=== PATIENT | male | born 1990 | race Caucasian/White ===

== ENCOUNTER 2016-11-22 12:54 | Emergency (ER) | payer SELFPAY ==
[~2016-11-22] VITALS: Ht 188 cm; Wt 99.8 kg
[2016-11-22 13:10] VITALS: BP 114/79
--- NOTE | 2016-11-22 13:14 | Emergency Room Report ---
History of Present Illness General Chief Complaint: Pain Source: Patient, EMS Present Illness HPI The patient is a 26 yo M presenting with bilateral lower leg pain and numbness which began today. The patient states that these sensations occurred after walking more than usual. The patient states that symptoms are relieved with rest. Pain is described as a 5/10 dull ache primarily to both feet. The patient denies any other symptoms including back pain, incontinence, shortness of breath, chest pain, fever, chills, leg swelling, dizziness Allergies: Coded Allergies: No Known Allergies (Unverified , 11/22/16) Patient History Past Medical History: see triage record Pertinent Family History: none Reviewed Nursing Documentation: PMH: Agreed, PSxH: Agreed Nursing Documentation-PMH Past Medical History: No History, Except For Hx Asthma: Yes Review of Systems All Other Systems: negative except mentioned in HPI Physical Exam Vital Signs Date Time Temp Pulse Resp B/P Pulse Ox O2 Delivery O2 Flow Rate FiO2 11/22/16 12:45 98.4 77 16 114/79 99 Room Air Sp02 EP Interpretation: reviewed, normal General Appearance: no apparent distress, alert, GCS 15, non-toxic Head: normocephalic, atraumatic Eyes: bilateral eye PERRL, bilateral eye normal inspection Respiratory: chest non-tender, lungs clear, normal breath sounds, speaking full sentences Cardiovascular #1: regular rate, rhythm, no edema Gastrointestinal: normal bowel sounds, non tender, soft, non-distended, no guarding, no rebound Musculoskeletal: back normal, digits/nails normal, gait/station normal, normal range of motion, no calf tenderness, tender - TTP over plantar surfaces of bilat feet Neurologic: alert, oriented x3, responsive, motor strength/tone normal, sensory intact, normal gait, speech normal Psychiatric: judgement/insight normal, memory normal, mood/affect normal, no suicidal/homicidal ideation Reflexes: 2+ knee (R), 2+ knee (L), 2+ ankle (R), 2+ ankle (L) Skin: normal color, no rash, warm/dry, well hydrated Lymphatic: no adenopathy Medical Decision Making PA Attestation Dr. Crawford is my supervising physician. Patient management was discussed with my supervising physician Diagnostic Impression: Primary Impression: Right foot strain Additional Impression: Strain of left foot ER Course The patient is a 26 yo M presenting with bilateral lower leg pain and numbness which began today. Ddx considered include but not limited to sprain/strain, Cauda equina syndrome, fracture, contusion PE: vitals WNL. NAD. Head NC/AT. Skin warm and dry. SILT to bilat lower legs. No midline back tenderness. No obvious deformity. full AROM. Feet: TTP over bilat plantar surfaces. No edema. No deformity. The patient is given tylenol and is allowed to rest in the ED. Patient is feeling better. Patient states numbness has resided and pain has decreased. Normal gait at time of DC. Given prescription for motrin Last Vital Signs Date Time Temp Pulse Resp B/P Pulse Ox O2 Delivery O2 Flow Rate FiO2 11/22/16 13:10 98.4 67 16 114/79 99 Room Air Status: improved Disposition: HOME, SELF-CARE Condition: Improved Scripts Ibuprofen* (MOTRIN*) 600 Mg Tablet 600 MG ORAL Q8H Y for For Pain, #30 TAB 0 Refills Prov: DOREEN GUERIN 11/22/16 Referrals: NOT CHOSEN IPA/,REFERRING (PCP) DOREEN GUERIN Nov 22, 2016 13:14
[2016-11-22] MEDS ORDERED: IBUPROFEN600 MG ORAL (14:19)
[2016-11-22 14:57] VITALS: BP 120/69
[2016-11-22 14:59] VITALS: BP 120/69
== END 2016-11-22 14:59 | disposition home or self-care (01) ==
LOC: EDBD 12:54 → EMR 13:07
DX: S96.911A Strain of unspecified muscle and tendon at ankle and foot level, right foot, initial encounter (principal); S96.912A Strain of unspecified muscle and tendon at ankle and foot level, left foot, initial encounter; X58.XXXA Exposure to other specified factors, initial encounter; Y93.9 Activity, unspecified; Y92.9 Unspecified place or not applicable; Z87.09 Personal history of other diseases of the respiratory system
CPT/HCPCS: 99283